=== PATIENT | male | born 1965 | race Caucasian/White ===

== ENCOUNTER 2018-08-23 18:26 | Emergency (ER) | payer OTHER, SELFPAY ==
[2018-08-23 19:21] VITALS: BP 150/92; PULSE 56; RESP 18; TEMP 37.3; O2SAT 97
--- NOTE | 2018-08-23 19:27 | DI.RAD.S_ITS ---
PROCEDURE: XR HAND LT MIN 3V INDICATIONS: traumatic injury TECHNIQUE: 3 views of the hand(s) acquired. COMPARISON: None. FINDINGS: Bones: No fractures or dislocations. Carpal bones are normally aligned. No suspicious bony lesions. Soft tissues: No suspicious soft tissue calcifications. IMPRESSION: No acute radiographic findings. If pain persists, repeat study in 5-7 days is recommended to exclude occult fracture. Dictated by: Cheyenne Maldonado M.D. on 08/23/2018 at 19:56 Approved by: hCeyenne Maldonado M.D. on 08/23/2018 at 19:57
[2018-08-23] MEDS: TET,DIPH,PERTUSS(ACELL),VAC/PF 0.5 ML SYRINGE IM (19:56)
--- NOTE | 2018-08-23 20:14 | ED_ITS ---
HPI - Extremity Injury (Upper) <Holly Amaro PA-C - Last Filed: 08/23/18 23:06> General Chief Complaint: Extremity Injury, Upper Stated Complaint: LACERATION TO LEFT HAND Time Seen by Provider: 08/23/18 20:14 Source: patient Mode of arrival: ambulatory Limitations: no limitations History of Present Illness HPI narrative: This 53-year-old right-handed gentleman cut his left hand and wrist on a hole cutting saw 6 hours ago. He he denies any other injury. He was evaluated at his local Urgent Care/ED on [place] and sent here due to concern for tendon injury. He has not had any pain medication. He has not had tetanus vaccine prior to arrival Related Data Previous Rx's Medication Instructions Recorded docusate sodium [Colace] 100 mg PO BID #14 cap 10/04/17 oxycodone 5 mg PO Q4HP PRN #30 tab 10/04/17 sennosides [Senokot] 8.6 mg PO QDAY #10 tab 10/04/17 cephalexin [Keflex] 500 mg PO Q6H 5 Days #20 cap 08/23/18 oxycodone-acetaminophen [Percocet] 1 tab PO Q4-6H PRN #10 tab 08/23/18 Allergies Allergy/AdvReac Type Severity Reaction Status Date / Time codeine [CODEINE] Allergy Unknown RASH-CHILDHOOD Unverified 02/22/18 11:46 RXN Exam <Holly Amaro PA-C - Last Filed: 08/23/18 23:06> Initial Vital Signs Initial Vital Signs: Vital Signs Temperature 99.2 F 08/23/18 19:21 Pulse Rate 56 L 08/23/18 19:21 Respiratory Rate 18 08/23/18 19:21 Blood Pressure 150/92 H 08/23/18 19:21 Pulse Oximetry 97 08/23/18 19:21 GENERAL APPEARANCE: Patient sitting comfortably, in no distress. LUNGS: Clear to auscultation bilaterally. HEART: Rate and rhythm regular without murmur, normal S1 and S2, no S3 or S4. DERMATOLOGIC: Left pointer finger dorsum just distal to the MCP there is a 3 cm laceration that appears to be 3 cm in depth (irregular). There is a 2nd laceration proximal to the left thumb base near the wrist also on the dorsum 4 cm in length that appears to be down to muscle/tendon layer, 14 mm in depth at the proximal side (deepest). No bone visible. The borders of both wounds are macerated with microtears and there are numerous superficial linear abrasions between the 2 wounds MS: Full range of motion left hand pointer finger in all kent, strength is intact against resistance. Left thumb off full range of motion aside from at the IP joint, which is unable to extend. Otherwise strength is intact against resistance. Full range of motion of the left wrist. NEUROVASCULAR: Right radial and ulnar pulses 2+, fingers are warm and pink, sensation is grossly intact <Cassia Flanagan DO - Last Filed: 08/24/18 06:54> Initial Vital Signs Initial Vital Signs: Vital Signs Temperature 99.2 F 08/23/18 19:21 Pulse Rate 56 L 08/23/18 19:21 Respiratory Rate 18 08/23/18 19:21 Blood Pressure 150/92 H 08/23/18 19:21 Pulse Oximetry 97 08/23/18 19:21 Procedures <WILLIAM Abreu Last Filed: 08/23/18 23:06> Laceration Repair Laceration 1: Site: hand (pointer finger) Side (If applicable): left Size (cm): 3.8 Description: linear and irregular Depth: simple, single layer Local Anesthetic: lidocaine 1% Amount of anesthesia used (mL): 5 Pre-repair: wound explored, irrigated extensively and deep structures intact Skin layer closed with: nylon Size (cm): 5-0 Number of sutures: 5 Technique: simple, interrupted Laceration 2: Site: upper extremity (wrist) Side (If applicable): left Size (cm): 4 Description: linear, irregular and clean Depth: involves muscle layer and involves tendon Local Anesthetic: lidocaine 1% Amount of anesthesia used (mL): 6 Pre-repair: wound explored and irrigated extensively (500cc+ NS and cleaned/washed) Skin layer closed with: nylon Size (cm): 4-0 Number of sutures: 5 Technique: simple, interrupted [facility] Procedure Name of Procedure: Radial gutter splint placed with the thumb in extension. Patient reported this felt comfortable, fingers warm and pink and sensation intact post placement Side (if applicable): left Course <WILLIAM Abreu Last Filed: 08/23/18 23:06> Additional Information: I spoke with Dr. Espinal, weed controller for orthopedics, and described injury. She states that she suspects this is an injury to the EPL causing inability to extend the thumb at the IP joint, and this does need to be repaired but not urgently. She advised loose suturing after thorough irrigation , and placing an radial gutter splint, and having patient call her office 1st thing in the morning for follow-up and surgical planning. Orders Ordered: Discontinued Medications Cefazolin Sodium (Keflex) 1 bottle MISC SEEINSTR ONE Stop: 08/23/18 20:53 Last Admin: 08/23/18 22:00 Dose: 1 bottle Diphtheria/Tetanus/Acell Pertussis (Adacel) 0.5 ml IM .ONCE ONE Stop: 08/23/18 19:54 Last Admin: 08/23/18 19:56 Dose: 0.5 ml Hydromorphone HCl (Dilaudid) 0.5 mg IV NOW ONE Stop: 08/23/18 20:25 Last Admin: 08/23/18 20:52 Dose: 0.5 mg Ketorolac Tromethamine (Toradol) 30 mg IM NOW ONE Stop: 08/23/18 20:25 Last Admin: 08/23/18 20:53 Dose: 15 mg Oxycodone/Acetaminophen (Endocet 5/325 Prepack) 1 bottle MISC SEEINSTR ONE Stop: 08/23/18 21:52 Last Admin: 08/23/18 22:00 Dose: 1 bottle Vital Signs - 8 hr 08/23/18 19:21 08/23/18 22:29 Temperature 99.2 F Pulse Rate 56 L 53 L Respiratory Rate 18 17 Blood Pressure 150/92 H Blood Pressure [Right Arm] 147/87 H Pulse Oximetry 97 96 <Cassia Flanagan DO - Last Filed: 08/24/18 06:54> Orders Ordered: Discontinued Medications Cefazolin Sodium (Keflex) 1 bottle MISC SEEINSTR ONE Stop: 08/23/18 20:53 Last Admin: 08/23/18 22:00 Dose: 1 bottle Diphtheria/Tetanus/Acell Pertussis (Adacel) 0.5 ml IM .ONCE ONE Stop: 08/23/18 19:54 Last Admin: 10/10/18 19:56 Dose: 0.5 ml Hydromorphone HCl (Dilaudid) 0.5 mg IV NOW ONE Stop: 08/23/18 20:25 Last Admin: 08/23/18 20:52 Dose: 0.5 mg Ketorolac Tromethamine (Toradol) 30 mg IM NOW ONE Stop: 08/23/18 20:25 Last Admin: 08/23/18 20:53 Dose: 15 mg Oxycodone/Acetaminophen (Endocet 5/325 Prepack) 1 bottle MISC SEEINSTR ONE Stop: 08/23/18 21:52 Last Admin: 08/23/18 22:00 Dose: 1 bottle Vital Signs - 8 hr 08/23/18 19:21 08/23/18 22:29 Temperature 99.2 F Pulse Rate 56 L 53 L Respiratory Rate 18 17 Blood Pressure 150/92 H Blood Pressure [Right Arm] 147/87 H Pulse Oximetry 97 96 Discharge Plan Departure Patient Disposition: Home Clinical Impression: Laceration of hand involving extensor tendon Discharge Date/Time: 08/23/18 22:36 Interventions: ED Discharge Assessment Last Done: 08/23/18 22:35 Instructions: DI for Laceration Repair, DI for Finger Extensor Tendon Injury Activity Restrictions/Additional Instructions: The sutures in your pointer finger will need to stay in for a week to 10 days. Please keep them clean and dry. The orthopedic doctors may be able to take them out for you when they treat and follow up on your tendon injury. The sutures closer to your wrist are just there to loosely hold the wound together. They are loose on purpose to allow the wound to drain if needed. We have given you an antibiotic called cephalexin. Please take 2 capsules this evening and 2 in the morning. I have given you a prescription to fill for a stronger dose which will be 1 capsule 4 times daily to help to prevent infection. I have also given you a prescription for oxycodone/acetaminophen since you took that without problems after your recent surgery. You can take this as needed, but do not drive as it may make you sleepy. Please add Aleve, 1 or 2 tablets twice daily, or ibuprofen, 3 tablets every 8 hr as needed for pain and inflammation as well as this is not likely to make you sleepy or constipated. Tomorrow morning, please call [facility] and let them know that we consult to Dr. Espinal from the emergency room and that you have a tendon injury in your hand which will need surgery. She wanted to arrange to have you seen tomorrow. Let them know to check with her if she has not already found a place in the schedule for you. Prescriptions: New oxycodone-acetaminophen [Percocet] 5-325 mg tablet 1 tab PO Q4-6H PRN (Reason: pain in wrist and hand) Qty: 10 RF: 0 cephalexin [Keflex] 500 mg capsule 500 mg PO Q6H 5 Days Qty: 20 RF: 0 No Action docusate sodium [Colace] 100 MG capsule 100 mg PO BID Qty: 14 RF: 1 oxycodone 5 MG tablet 5 mg PO Q4HP PRNQty: 30 RF: 0 sennosides [Senokot] 8.6 MG tablet 8.6 mg PO QDAY Qty: 10 RF: 1 Referrals: Archana Espinal MD [Physician] - <Cassia Flanagan DO - Last Filed: 08/24/18 06:54> Cosign ED Attending Cosignature Attestation: I was immediately available in the department for consultation. This documentation has been reviewed and I agree with assessment and plan. Supervised by Cassia Flanagan DO
[2018-08-23] MEDS: HYDROMORPHONE 1 MG INJ 0.5 MG IV (20:52)
[2018-08-23] MEDS: KETOROLAC 60 MG/2 ML VIAL 30 MG IM (20:53)
[2018-08-23] MEDS: cephALEXin 250 MG PREPACK 1 BOTTLE MISC (22:00)
[2018-08-23] MEDS: OXYCODONE/APAP 5/325 PREPACK 1 BOTTLE MISC (22:00)
[2018-08-23 22:29] VITALS: BP 147/87; PULSE 53; RESP 17; O2SAT 96
== END 2018-08-23 22:36 | disposition home or self-care (01) ==
PROVIDERS: Emergency Provider Internal Medicine
DX: S61.412A Laceration without foreign body of left hand, initial encounter (principal); S66.922A Laceration of unspecified muscle, fascia and tendon at wrist and hand level, left hand, initial encounter; W27.0XXA Contact with workbench tool, initial encounter
CPT/HCPCS: 12002; 12004; 29125; 36591; 73130; 90471; 96372; 96374; 99283; 99284; 90715; J1170; J1885

== ENCOUNTER 2018-08-31 14:03 | Day surgery (SDC) | payer OTHER, SELFPAY ==
[2018-08-30 08:03] VITALS: BMI 24.7
[2018-08-31] VITALS (7 sets, daily range): BP systolic 148–168; BP diastolic 83–107; PULSE 61–94; RESP 16–17; TEMP 36.3–37.1; O2SAT 94–99; BMI 24.7
[2018-08-31] MEDS: LACTATED RINGERS 1,000 ML 42 ML IV (14:56)
--- NOTE | 2018-08-31 15:56 | PM.PREOP ---
Pre-operative Note Interval Note Pre-op Check: Yes History & Physical Reviewed by Physician and Yes Exam Performed Changes: No H&P completed within 30 days and has changed as indicated here:: no active left EPL function, normal extension of the index finger
--- NOTE | 2018-08-31 16:02 | P.OP_ITS ---
Operative Date/Time/Diagnoses Date of procedure: 08/31/18 Time of procedure: 15:58 Pre-op diagnosis: left extensor pollicus longus laceration Post-op diagnosis: same Procedure & Clinicians Procedure: left extensor pollicis longus thumb tendon repair Same procedure as scheduled: Yes Indications: 53-year-old male who cut his hand on a circular saw when he was attempting to install a fan. The accident happened at home he noted the acute onset of a wound and difficulty with thumb function. He was seen in the emergency room where his skin was loosely closed and referred for orthopedic consultation. Surgeon: Archana Espinal Hand Straightener: Radha Perez Anesthesia Type: General Operative Notes Findings: complete left thumb EPL laceration Closure Type: primary Estimated Blood Loss (mL): 100 Blood products transfused: none Tourniquet time (min): 27 Procedure in detail: Patient was brought to the operating room. Antibiotics were given and a time-out was performed. His left upper extremity was prepped and draped in a standard sterile fashion. The patient's previous traumatic incision was carefully examined and evaluated the sutures were removed. It was extended proximally and distally. The extensor pollicis longus tendon was identified and sutures were placed in both the proximal and distal segment. The tendon was repaired with a modified Mcgrath stitch. Additional sutures were placed with 3 0 Tevdek. Good quality repair was achieved. The wound was meticulously irrigated with normal saline. Marcaine was injected. The wound was closed with interrupted nylon. Patient was placed through a gentle range of motion prior to closure and was noted that the approach repair tension appeared appropriate. The wound was dressed sterilely. Patient's thumb was held in extension during closure and splinting. A thumb spica splint was applied. Complications: none Condition: stable Disposition: same day surgery Plan for aftercare: Postoperative thumb spica splint and transition to a thumb spica cast with the thumb in maximum extension total time of immobilization 6 weeks postoperatively.
[2018-08-31] MEDS: CEFAZOLIN 2 GM/100 ML FROZ.PIGGY IV (16:15)
[2018-08-31] MEDS: BUPIVACAINE 0.5% (PF) VIAL 30 ML INJ (16:37)
--- NOTE | 2018-08-31 16:40 | SUR.OPER ---
Supine on padded OR bed, head on pillow, right arm secured on padded arm boards at <90 degrees abduction, left arm drapped free on black hand table, legs uncrossed, safety belt at thigh, tape over blanket over lower legs.
[2018-08-31] MEDS: HYDROMORPHONE 2 MG INJ 0.5 MG IV ×2 (17:25→17:32)
[2018-08-31] MEDS: OXYCODONE/ACETAMINOPHEN 5/325 TABLET 1 TAB PO (18:07)
== END 2018-08-31 18:09 | disposition home or self-care (01) ==
PROVIDERS: PCP Family Medicine; Visit Provider Orthopaedic Surgery
PROC: (CPT 26418; principal; 2018-08-31 16:15)
DX: S66.222A Laceration of extensor muscle, fascia and tendon of left thumb at wrist and hand level, initial encounter (principal); W31.2XXA Contact with powered woodworking and forming machines, initial encounter; F17.210 Nicotine dependence, cigarettes, uncomplicated
CPT/HCPCS: 26418; J0690; J1100; J1170; J2405; J3010

== ENCOUNTER → 2019-11-17 10:37 | Outpatient (CLI) | payer OTHER, SELFPAY ==
--- NOTE | 2019-11-17 | DI.MRI.S_ITS ---
PROCEDURE: MR KNEE RT WO CON INDICATIONS: Unspecified internal derangement of right knee TECHNIQUE: Noncontrast sagittal PD fast spin echo and T2 fast spin echo with fat saturation, sagittal 3-D FLASH with fat saturation; coronal T1 spin echo and PD fast spin echo with fat saturation, and axial PD fast spin echo with fat saturation through the knee. COMPARISON: None. FINDINGS: Image quality: Excellent. Menisci: The medial meniscus demonstrates linear and amorphous high signal intensity within the posterior horn, which demonstrates inferior articular surface extension as posterior aspect. There is linear oblique high T2 signal intensity within the lateral meniscal body, demonstrating inferior articular surface extension. There is radial tearing of the free edge of the anterior horn lateral meniscus. Cruciate ligaments: The anterior and posterior cruciate ligaments appear intact. Medial structures: The medial collateral ligament appears intact. Visualized portions of the pes anserinus tendons appear normal. There is a small focus of fluid signal intensity within the semimembranosus tendon at the tibial insertion site. No abnormal bursal fluid. Lateral structures: The lateral collateral ligament, long and short heads of the biceps femoris tendon appear intact. The popliteus tendon appears normal. Iliotibial band appears normal. Anterior structures: The quadriceps and patellar tendons appear intact. Mild T2 signal elevation within the patellar tendon at the patellar insertion site. Patellar alignment is normal. No femoral trochlear dysplasia or ventral trochlear prominence. No edema in the infrapatellar fat pad. Bones and cartilage: No bone marrow contusions or fractures. There is subchondral cyst formation with surrounding ill-defined STIR signal elevation in the posterior nonweightbearing aspect of the lateral femoral condyle. There is mild diffuse articular cartilage loss overlying the weightbearing aspects of the medial femoral condyle and medial tibial plateau. There is severe articular cartilage loss overlying the posterior nonweightbearing aspect of the lateral femoral condyle. Articular cartilage fibrillation overlies the medial and lateral patellar facets. Joint space: There is physiologic knee joint fluid. Trace Real's cyst. Normal appearing synovial plicae are incidentally noted. IMPRESSION: 1. Tricompartmental osteoarthritis with associated articular cartilage loss. 2. Medial and lateral meniscal tearing. 3. Mild patellar tendinitis. 4. Low-grade partial-thickness tear of the semimembranosus tendon at the tibial insertion site. 5. Trace Real's cyst. Dictated by: Barbara Aponte M.D. on 11/19/2019 at 9:40 Approved by: Barbara Aponte M.D. on 11/19/2019 at 9:54
== END ==
PROVIDERS: PCP Family Medicine; Visit Provider Family Medicine
DX: M17.11 Unilateral primary osteoarthritis, right knee (principal); S83.281A Other tear of lateral meniscus, current injury, right knee, initial encounter; S83.241A Other tear of medial meniscus, current injury, right knee, initial encounter; M76.51 Patellar tendinitis, right knee
CPT/HCPCS: 73721